=== PATIENT | female | born 1945 | race Caucasian/White ===

== ENCOUNTER → 2018-05-02 | Outpatient (CLI) | payer MEDICARE, BC ==
[~2018-05-02] MED LIST: NO HOME MEDICATIONS
== END ==
LOC: MC.RAD 14:51
DX: R92.2 Inconclusive mammogram (principal)

== ENCOUNTER → 2018-11-04 | Outpatient (CLI) | payer MEDICARE, BC | LOC: MC.RAD 13:52 | DX: N63.22 Unspecified lump in the left breast, upper inner quadrant (principal) ==

== ENCOUNTER → 2019-05-05 | Outpatient (CLI) | payer MEDICARE, BC | LOC: MC.RAD 09:44 | DX: Z12.31 Encounter for screening mammogram for malignant neoplasm of breast (principal) ==

== ENCOUNTER → 2020-05-18 | Outpatient (CLI) | payer MEDICARE, BC | LOC: MC.RAD 05-10 10:00 | DX: Z12.31 Encounter for screening mammogram for malignant neoplasm of breast (principal) ==

== ENCOUNTER 2021-07-28 08:31 | Day surgery (SDC) | payer MEDICARE, BC ==
[~2021-07-28] VITALS: Ht 165.1 cm; Wt 96.4 kg
[2021-07-28] MEDS ORDERED: COZAAR100 MG PO (08:48)
[2021-07-28] MEDS ORDERED: HYGROTON 2525 MG/TAB PO (08:48)
[2021-07-28 09:10] VITALS: BP 122/79; PULSE 76; TEMP 97
[2021-07-28 11:00] VITALS: BP 112/88; PULSE 61; TEMP 97
--- NOTE | 2021-07-28 11:00 | NUR ---
Patient alert and awake. Ambulated from cart to chair with assistance of 1. Patient requesting blueberry muffin and water. Denies pain or nausea at this time. Dr. Duncan previously visited with about operative report and relayed results to . No questions at this time. at bedside. Vital signs stable.
[2021-07-28 11:15] VITALS: BP 122/81; PULSE 65
--- NOTE | 2021-07-28 11:15 | NUR ---
Patient tolerated food and drink well. No complaint of pain or nausea. Patient states she is ready to go. Patient up with stand by assistance to use restroom. Got dressed. at bedside. Vital signs stable.
[2021-07-28 11:30] VITALS: BP 127/84; PULSE 81
--- NOTE | 2021-07-28 11:30 | NUR ---
Went through discharge instructions with patient and . Both verbalized understanding to education. Patient already dressed. IV removed with no complications. Patient refusing to used wheelchair. Educated patient about increase risk of falls with moderate sedation. Still refusing. Patient escorted to patient entrance via ambulated and got into personal vehicle unassisted. Patient left in the care of her , Amor.
[2021-07-28 12:05] VITALS: BP 100/68; PULSE 66
== END 2021-07-28 11:30 | disposition home or self-care (01) ==
LOC: SDCO 08:31
DX: Z12.11 Encounter for screening for malignant neoplasm of colon (principal); D12.4 Benign neoplasm of descending colon; D12.5 Benign neoplasm of sigmoid colon; I10 Essential (primary) hypertension; G89.29 Other chronic pain; M54.30 Sciatica, unspecified side; M17.12 Unilateral primary osteoarthritis, left knee; R73.03 Prediabetes; N18.31 Chronic kidney disease, stage 3a; E66.01 Morbid (severe) obesity due to excess calories; Z79.899 Other long term (current) drug therapy; Z85.828 Personal history of other malignant neoplasm of skin; Z87.891 Personal history of nicotine dependence; Z68.36 Body mass index [BMI] 36.0-36.9, adult; Z80.1 Family history of malignant neoplasm of trachea, bronchus and lung
CPT/HCPCS: J2704; J7120

== ENCOUNTER → 2021-08-12 | Outpatient (CLI) | payer MEDICARE, BC ==
[~2021-08-12] MED LIST changes: +COZAAR100 MG PO; +HYGROTON 2525 MG/TAB PO
== END ==
LOC: MC.RAD 07:52
DX: Z12.31 Encounter for screening mammogram for malignant neoplasm of breast (principal)

== ENCOUNTER → 2021-08-19 | Outpatient (CLI) | payer MEDICARE, BC | LOC: MC.RAD 07:55 | DX: N64.89 Other specified disorders of breast (principal) ==

== ENCOUNTER → 2021-08-31 | Outpatient (CLI) | payer MEDICARE, BC | LOC: MC.RAD 09:57 | DX: N63.20 Unspecified lump in the left breast, unspecified quadrant (principal) ==

== ENCOUNTER 2022-01-07 17:34 | Inpatient (IN) | payer MEDICARE, BC ==
[~2022-01-07] VITALS: Ht 165.1 cm; Wt 98.8 kg
[2022-01-07 18:32] LABS: BASO # 0.1 K/mm3 (0.0-0.2); BASO % 0.5 % (0.0-2.0); EOS # 0.1 K/mm3 (0.0-0.7); GRAN # 11.2 K/mm3 (1.4-6.5); GRAN % 83.9 % (42.2-75.2); HEMATOCRIT 40.5 % (37.0-47.0); HEMOGLOBIN 13.8 g/dl (12.5-16.0); LYMPH # 0.9 K/mm3 (1.2-3.4); LYMPH % 6.4 % (20.0-51.0); MEAN CELL VOLUME 91 fl (80.0-100.0); MEAN CORPUSCULAR HEMOGLOBIN 31 pg (27-31); MEAN CORPUSCULAR HGB CONC 34 g/dl (33.0-37.0); MEAN PLATELET VOLUME 8.7 fl (7.4-10.4); MONO # 1.1 K/mm3 (0.1-0.6); MONO % 7.8 % (1.7-9.3); PLATELET COUNT 253 K/mm3 (130-400); RED BLOOD COUNT 4.43 M/mm3 (4.10-5.30); REDCELL DISTRIBUTION WIDTH-CV 12.9 % (11.5-14.5)
[2022-01-07 18:54] LABS: CALCIUM 9.6 mg/dL (8.4-10.2); CREATININE, serum 1.22 mg/dL (0.57-1.11); POTASSIUM 3.9 mmol/L (3.5-4.5)
[2022-01-07 19:00] LABS: TROPONIN-I 0.013 ng/mL (0.00-0.033)
[2022-01-07 19:11] LABS: PHOSPHOROUS 3.5 mg/dL (2.3-4.7)
[2022-01-07] MEDS ORDERED: GERITOL COMPLET1 TA1 PO (22:36)
[2022-01-07 23:32] VITALS: BP 164/72; PULSE 97; TEMP 98.5
--- NOTE | 2022-01-08 00:30 | NUR ---
Admitted to medical floor from ER- Dx SOB, cough, has a productive cough,, Up to bathroom, steady on feet, denies pain, was given antibiotics in ER, did swab for RVP per order, o2 at 2-3L/nc, Tele on
--- NOTE | 2022-01-08 02:10 | NUR ---
Down to CT for chest CT
[2022-01-08 03:34] VITALS: BP 155/60; PULSE 88; TEMP 98.9
--- NOTE | 2022-01-08 06:10 | NUR ---
Did sleep for a few hours last night- states overall is feeling better, VSS, o2 sats 92% on 2L/nc, RVP came back + rhnovirus/enterovirus,, on droplet isolation. tele on.
[2022-01-08 08:33] VITALS: BP 130/57; PULSE 90; TEMP 98.4
[2022-01-08 11:48] VITALS: BP 120/54; PULSE 79; TEMP 98
--- NOTE | 2022-01-08 15:50 | NUR ---
Called with c/o pain to right flank-described as constant throbbing-rating pain 7/10 on pain scale. Morphine given per dr order. Will reassess
[2022-01-08 16:07] VITALS: BP 124/56; PULSE 77; TEMP 97.9
--- NOTE | 2022-01-08 18:15 | NUR ---
Patient had an uneventful day. Weaned down to 1L/NC with O2 sats 92%. Switched to PO antibiotics/steroids IV. Tolerating diet. VS stable. Denies pain/nausea/shortness of breath. Denies current needs. Call light in reach. Will monitor.
[2022-01-08 19:34] VITALS: BP 131/61; PULSE 84; TEMP 98.3
--- NOTE | 2022-01-08 20:30 | NUR ---
Initial shift assessment done- denies pain-denies SOB at rest, 02 at 1L/nc with sats at 93%, respiratory therapy here giving a respiratory treatment, pt states she is feeling much better- hopes to go home tomorrow.
[2022-01-08 23:11] VITALS: BP 124/55; PULSE 81; TEMP 98
[2022-01-09 03:34] VITALS: BP 139/60; PULSE 81; TEMP 97.9
--- NOTE | 2022-01-09 04:47 | NUR ---
No requests, Quiet night- o2 sats 92% on 1L/nc. VSS
[2022-01-09 06:26] LABS: HEMATOCRIT 37.3 % (37.0-47.0); HEMOGLOBIN 12.8 g/dl (12.5-16.0); MEAN CELL VOLUME 91 fl (80.0-100.0); MEAN CORPUSCULAR HEMOGLOBIN 31 pg (27-31); MEAN CORPUSCULAR HGB CONC 34 g/dl (33.0-37.0); MEAN PLATELET VOLUME 9.3 fl (7.4-10.4); PLATELET COUNT 288 K/mm3 (130-400); RED BLOOD COUNT 4.09 M/mm3 (4.10-5.30)
[2022-01-09 06:39] LABS: CALCIUM 9.1 mg/dL (8.4-10.2); CREATININE, serum 1.28 mg/dL (0.57-1.11); MAGNESIUM 2.1 mg/dL (1.6-2.6); POTASSIUM 3.4 mmol/L (3.5-4.5)
[2022-01-09 07:12] VITALS: BP 125/50; PULSE 83; TEMP 97.9
[2022-01-09 07:32] LABS: BAND 5 % (0-10); LYMPHOCYTE 3 % (20.0-51.0); NEUTROPHILS 88 % (42.0-75.2)
[2022-01-09 07:34] LABS: PLATELET ESTIMATE NORMAL (NORMAL)
--- NOTE | 2022-01-09 11:03 | NUR ---
Surgical Rn met with patient to discuss discharge planning. Patient lives in [place] with her , Amor (ph#[phone]) and sees Dr. Arias for primary care. Patient obtains medications from [facility] with no difficulties and does not use any DME. Patient advised she is independent with ADLS and plans to return home at time of discharge. Patient does not have Advance Directives but stated she just took a class on this. Discharge Plan: Home
[2022-01-09] MEDS ORDERED: DOXYCYCLINE 10100 MG PO (11:32)
[2022-01-09] MEDS ORDERED: PROAIR HFA0.09 MG/AC IH (11:32)
[2022-01-09] MEDS ORDERED: PREDNISONE10 MG PO (11:33)
--- NOTE | 2022-01-09 11:37 | NUR ---
PATIENT IN BED, UPRIGHT. ALERT AND ORIENTED. NO COMPLAINTS OF PAIN. FREQUENT COUGH, NON PRODUCTIVE. PATIENT VERY SUCCESSFUL WITH IS, INDEPENDENTLY USING. EATING ADEQUATELY. ON ROOM AIR. PASSED EX OX WITH RT. TAKES MEDS WHOLE WITH WATER. REPLACING POTASSIUM THIS MORNING. NO OTHER CONCERNS AT THIS TIME.
[2022-01-09 11:54] VITALS: BP 123/54; PULSE 80; TEMP 98
--- NOTE | 2022-01-09 14:06 | NUR ---
PATIENT IV/INT REMOVED. 1 DOSE OF MONDOX GIVEN TO PATIENT FROM PHARMACY WITH INSTRUCTIONS TO TAKE TONIGHT WITH NIGHTTIME MEDS. REVIEWED NEW MEDS WITH PATIENT. RECOMMENDED PROBIOTIC YOGURT, AND ELEVATION OF HOB AT NIGHT FOR COUGH. REVIEWED SIGNS AND SYMPTOMS OF INCREASED/NEW INFECTIONS. PATIENT DRESSED SELF AND WHEELED OUT BY MAIRA GRAY.
== END 2022-01-09 14:13 | disposition home or self-care (01) | DRG 871 ==
LOC: COL.ER 17:34 → MEDICAL 21:19
PROVIDERS: Emergency Medicine; ADMIT Internal Medicine
DX: A41.9 Sepsis, unspecified organism (principal); J96.01 Acute respiratory failure with hypoxia; N17.9 Acute kidney failure, unspecified; Z20.822 Contact with and (suspected) exposure to COVID-19; J98.01 Acute bronchospasm; E66.9 Obesity, unspecified; B97.89 Other viral agents as the cause of diseases classified elsewhere; B97.10 Unspecified enterovirus as the cause of diseases classified elsewhere; R73.9 Hyperglycemia, unspecified; Z88.6 Allergy status to analgesic agent; Z91.013 Allergy to seafood; Z87.891 Personal history of nicotine dependence; Z85.3 Personal history of malignant neoplasm of breast; Z68.36 Body mass index [BMI] 36.0-36.9, adult; Z23 Encounter for immunization
CPT/HCPCS: 99239; A9284; J0696; J1650; J2920; J2930; J7030; Q9967

== ENCOUNTER → 2022-09-26 | Outpatient (CLI) | payer MEDICARE, BC ==
[~2022-09-26] MED LIST changes: +DOXYCYCLINE 10100 MG PO; +GERITOL COMPLET1 TA1 PO; +PREDNISONE10 MG PO; +PROAIR HFA0.09 MG/AC IH
== END ==
LOC: MC.RAD 14:25
DX: Z12.31 Encounter for screening mammogram for malignant neoplasm of breast (principal); Z17.0 Estrogen receptor positive status [ER+]; Z85.3 Personal history of malignant neoplasm of breast

== ENCOUNTER → 2022-10-03 | Outpatient (CLI) | payer MEDICARE, BC | LOC: DIA.ED 13:26 | DX: E11.22 Type 2 diabetes mellitus with diabetic chronic kidney disease (principal); N18.9 Chronic kidney disease, unspecified; I10 Essential (primary) hypertension | CPT/HCPCS: G0108 ==

== ENCOUNTER → 2022-10-25 | Outpatient (CLI) | payer MEDICARE, BC | LOC: DIA.ED 10-18 08:36 | DX: E11.22 Type 2 diabetes mellitus with diabetic chronic kidney disease (principal); N18.9 Chronic kidney disease, unspecified; I10 Essential (primary) hypertension ==

== ENCOUNTER → 2023-07-24 | Outpatient (CLI) | payer MEDICARE, BC | LOC: MC.RAD 15:28 | DX: Z12.31 Encounter for screening mammogram for malignant neoplasm of breast (principal) ==